=== PATIENT | male | born 1980 | race Asian ===

== ENCOUNTER 2017-10-29 12:11 | Emergency (ER) | payer OTHER ==
[~2017-10-29] VITALS: Ht 185.4 cm; Wt 68.0 kg
[2017-10-29 12:30] VITALS: BP 116/66; TEMP 98.6
[2017-10-29 13:25] LABS: PLATELET COUNT 232 K/uL (142-355)
[2017-10-29 13:40] LABS: POTASSIUM 3.8 mmol/L (3.6-5.2); SODIUM 136 mmol/L (136-145)
[2017-10-29 13:55] LABS: PARTIAL THROMBOPLASTIN TIME 22.7 SECONDS (24.5-33.6)
== END 2017-10-29 19:24 | disposition other institution (70) ==
LOC: ED 12:11
DX: R45.851 Suicidal ideations (principal); F32.89 Other specified depressive episodes; F19.10 Other psychoactive substance abuse, uncomplicated
CPT/HCPCS: 36415; 80053; 80307; 80320; 80329; 81000; 82550; 82553; 84484; 85027; 85610; 85730; 93005; 99285